=== PATIENT | female | born 1945 | race African-American/Black ===

== ENCOUNTER 2017-05-01 14:58 | Outpatient (CLI) | payer MEDICARE, BC ==
--- NOTE | 2017-05-01 18:21 | ULT ---
EXAM: BILATERAL LOWER EXTREMITY VENOUS ULTRASOUND WITH DOPPLER: 05/01/17 HISTORY: Bilateral lower extremity edema x2 weeks. COMPARISON: None. TECHNIQUE: Wallace scale, color flow, doppler imaging with spectral waveform analysis performed in the left and rig ht lower extremity venous system. FINDINGS: Bilaterally, there is compressibility, presence of flow and augmentation in the common femoral vein, femoral vein and popliteal vein. There is flow in bilateral greater saphenous veins, profunda veins a nd posterior tibial veins. IMPRESSION: No evidence of thrombus in the left or right lower extremity venous system. POS: [facility]
== END 2017-05-01 14:59 | disposition home or self-care (01) ==
LOC: ULT 14:58
PROVIDERS: ATTEND Internal Medicine
DX: R60.0 Localized edema (principal)
CPT/HCPCS: 93970

== ENCOUNTER 2017-07-16 20:10 | Emergency (ER) | payer MEDICARE, BC | END 2017-07-16 20:49 | disposition left against medical advice (07) | LOC: ERS 20:10 | DX: Z53.21 Procedure and treatment not carried out due to patient leaving prior to being seen by health care provider (principal) ==

== ENCOUNTER 2021-04-16 14:54 | Inpatient (IN) | payer MEDICARE ==
[~2021-04-16 14:54] MED LIST: Iopamidol-370 76% 500 ML 1 ML ONE
[2021-04-16] MEDS ORDERED: Morphine 4 MG/ML VIAL ONE (15:22)
[2021-04-16] MEDS ORDERED: Lorazepam 2 MG/ML VIAL ONE (15:26)
[2021-04-16] MEDS ORDERED: niCARdipine 20MG In NaCl 20 MG/200 ML BAG ONE (15:33)
[2021-04-16 15:35] LABS: #Eosinphils 0.1 thou/uL (0.0-0.7); #Monocytes 0.5 thou/uL (0.11-0.59); #Neutrophils 5.2 thou/uL (1.40-6.50); %Basophils 0.4 % (0.0-1.0); %Eosinophils 1.7 % (0.0-10.0); %Monocytes 6.6 % (0.0-10.0); %Neutrophils 76.2 % (42.0-75.0); Hemoglobin 12.2 g/dL (12.0-16.0); Mean Corpuscular HGB CONC 32.5 g/dL (32.0-36.0); Mean Corpuscular Volume 95.5 fL (78.0-98.0); Mean Platelet Volume 6.1 fL (7.4-10.4); Platelet Count 327 thou/uL (130-400); RBC Distribution Width 12.5 % (11.5-14.5); Red Blood Cell (RBC) Count 3.93 mill/uL (4.20-5.40); White Blood Cell (WBC) Count 6.8 thou/uL (4.8-10.8)
[2021-04-16 16:05] LABS: ALT (SGPT) 10 U/L (8-55); AST (SGOT) 14 U/L (5-34); Alkaline Phosphatase 51 U/L (40-110); Anion Gap 19 mmol/L (10-20); BUN (Urea Nitrogen) 12 mg/dL (9.8-20.1); Bilirubin, Total 0.4 mg/dL (0.2-1.2); Calc. Creatinine Clearance 0 mL/min (70-130); Calcium 9.9 mg/dL (7.8-10.44); Carbon Dioxide 20 mmol/L (23-31); Chloride 102 mmol/L (98-107); Globulin 3.3 g/dL (2.4-3.5); Glucose 119 mg/dL (83-110); Potassium 3.9 mmol/L (3.5-5.1); Protein, Total 7.3 g/dL (5.8-8.1); Sodium 137 mmol/L (136-145)
[2021-04-16 18:44] LABS: Acetaminophen Less than 6.0 mcg/mL (10.0-30.0); Alcohol Less than 10 mg/dL (Less than 10); Salicylate Less than 8.0 mg/dL (15.0-30.0)
[2021-04-16 19:18] LABS: Bilirubin Negative (Negative); Blood, Urine Negative (Negative); Clarity Clear (Clear); Glucose, Urine (Dipstick) Normal (Negative); Ketone, Urine Negative (Negative); Leukocyte Negative Leu/uL (Negative); Nitrite Negative (Negative); Protein, Urine (Dipstick) 10 mg/dL (Neg-Trace); Specific Gravity, Urine 1.043 (1.002-1.036); Urobilinogen Normal mg/dL (Less than 2); pH, Urine 6.5 (5.0-9.0)
[2021-04-16 19:27] LABS: Amphetamine Not Detected (NotDetected); Barbiturates Screen Not Detected (NotDetected); Benzodiazepine Screen Not Detected (NotDetected); Cocaine Metabolite Screen Not Detected (NotDetected); Methadone Not Detected (NotDetected); Methamphetamine Not Detected (NotDetected); Opiate Screen Detected (NotDetected); Oxycodone Screen Not Detected (NotDetected); Phencyclidine (PCP) Not Detected (NotDetected); THC/Cannabinoid Screen Not Detected (NotDetected); Tricyclic Screen Not Detected (NotDetected)
[2021-04-16 21:30] LABS: Lactic Acid 1.4 mmol/L (0.5-2.2)
[2021-04-16] MEDS ORDERED: Aspirin 300 MG Suppository PR SCH (22:20)
[2021-04-16] MEDS ORDERED: Ondansetron PF 4 MG/2 ML Vial IVP PRN (22:28)
[2021-04-16] MEDS ORDERED: Bisacodyl 10 MG SUPP PR PRN (22:28)
[2021-04-16] MEDS ORDERED: Sodium Chloride 0.9% 1,000 ML IV SCH (22:30)
[2021-04-16 23:10] VITALS: BMI 20.7
[2021-04-17] MEDS ORDERED: HumaLOG 300 UNITS/3 ML VIAL SC PRN ×2 (00:05)
[2021-04-17] MEDS ORDERED: Dextrose 5% in Water 1,000 ML IV PRN (00:05)
[2021-04-17] MEDS ORDERED: Dextrose 50% Abboject 50 ML SYRINGE SLOW IVP PRN (00:05)
[2021-04-17] MEDS ORDERED: hydrALAZINE 20 MG/ML VIAL SLOW IVP PRN (00:14)
[2021-04-17] MEDS ORDERED: Pantoprazole 40 MG VIAL IVP SCH (00:30)
[2021-04-17] MEDS: Sodium Chloride 0.9% 1,000 ML IV SCH ×2 (00:38→18:41)
[2021-04-17 06:10] LABS: #Lymphocytes 1.2 thou/uL (1.20-3.40); #Monocytes 0.7 thou/uL (0.11-0.59); #Neutrophils 7.2 thou/uL (1.40-6.50); %Basophils 0.1 % (0.0-1.0); %Eosinophils 0.4 % (0.0-10.0); %Lymphocytes 13.2 % (21.0-51.0); %Monocytes 7.4 % (0.0-10.0); %Neutrophils 78.9 % (42.0-75.0); Hemoglobin 10.9 g/dL (12.0-16.0); Mean Corpuscular HGB CONC 34.4 g/dL (32.0-36.0); Mean Corpuscular Hemoglobin 32.6 pg (27.0-31.0); Mean Corpuscular Volume 94.8 fL (78.0-98.0); Mean Platelet Volume 6.1 fL (7.4-10.4); Platelet Count 323 thou/uL (130-400); RBC Distribution Width 12.6 % (11.5-14.5); Red Blood Cell (RBC) Count 3.35 mill/uL (4.20-5.40); White Blood Cell (WBC) Count 9.2 thou/uL (4.8-10.8)
[2021-04-17 06:30] LABS: Hemoglobin A1c 6.1 % (4.0-6.0)
[2021-04-17 06:31] LABS: ALT (SGPT) 11 U/L (8-55); AST (SGOT) 19 U/L (5-34); Albumin 3.4 g/dL (3.4-4.8); Alkaline Phosphatase 40 U/L (40-110); Anion Gap 14 mmol/L (10-20); BUN (Urea Nitrogen) 9 mg/dL (9.8-20.1); Bilirubin, Total 0.4 mg/dL (0.2-1.2); Calc. Creatinine Clearance 50 mL/min (70-130); Calcium 8.9 mg/dL (7.8-10.44); Carbon Dioxide 23 mmol/L (23-31); Cardiac Risk 1.8 (Less than 4.5); Chloride 102 mmol/L (98-107); Cholesterol 142 mg/dl (< 200 Desired); Globulin 2.7 g/dL (2.4-3.5); Glucose 112 mg/dL (83-110); HDL Cholesterol 80 mg/dL (>60 Neg Risk); LDL Cholesterol, Calculated 53 mg/dL; Potassium 4.1 mmol/L (3.5-5.1); Protein, Total 6.1 g/dL (5.8-8.1); Sodium 135 mmol/L (136-145); Triglycerides 44 mg/dL (Less than 150)
[2021-04-17] MEDS: Pantoprazole 40 MG VIAL IVP SCH ×2 (09:18→21:00)
[2021-04-17 14:28] LABS: SARS-CoV-2 PCR by NAA Not Detected (NotDetected)
[2021-04-17] MEDS: Acetaminophen 650 MG Suppository PR PRN ×2 (15:04→21:00)
[2021-04-18] MEDS ORDERED: Aspirin 300 MG Suppository PR SCH (09:00)
[2021-04-18] MEDS: Pantoprazole 40 MG VIAL IVP SCH ×3 (09:30→20:55)
[2021-04-18] MEDS: Sodium Chloride 0.9% 1,000 ML IV SCH (16:15)
[2021-04-19] MEDS ORDERED: Aspirin 325 MG TAB PO SCH (09:00)
[2021-04-19] MEDS: Sodium Chloride 0.9% 1,000 ML IV SCH (10:42)
[2021-04-19] MEDS: Pantoprazole 40 MG VIAL IVP SCH (10:46)
[2021-04-19] MEDS ORDERED: Meloxicam 7.5 MG TAB PO SCH (21:00)
[2021-04-19] MEDS ORDERED: Simvastatin 20 MG TAB PO SCH (21:00)
[2021-04-19] MEDS: Atorvastatin Calcium 10 MG TAB PO SCH (21:02)
[2021-04-19] MEDS: metFORMIN 500 MG TAB PO SCH (21:02)
[2021-04-20] MEDS: Sodium Chloride 0.9% 1,000 ML IV SCH (05:30)
[2021-04-20] MEDS: Aggrenox 200-25mg CAP PO SCH (09:00)
[2021-04-20] MEDS: metFORMIN 500 MG TAB PO SCH ×2 (09:00→21:10)
[2021-04-20] MEDS: Citalopram 20 MG TAB PO SCH (09:00)
[2021-04-20] MEDS: Lisinopril 5 MG TAB PO SCH (09:00)
[2021-04-20] MEDS: Amlodipine 5 MG TAB PO SCH (09:11)
[2021-04-20] MEDS: Atorvastatin Calcium 10 MG TAB PO SCH (21:10)
[2021-04-21] MEDS: Sodium Chloride 0.9% 1,000 ML IV SCH ×2 (05:23→23:55)
[2021-04-21] MEDS: Aggrenox 200-25mg CAP PO SCH (09:53)
[2021-04-21] MEDS: Amlodipine 5 MG TAB PO SCH (09:53)
[2021-04-21] MEDS: Lisinopril 5 MG TAB PO SCH (09:54)
[2021-04-21] MEDS: Citalopram 20 MG TAB PO SCH (09:54)
[2021-04-21] MEDS: metFORMIN 500 MG TAB PO SCH ×2 (09:54→20:55)
[2021-04-21] MEDS: Atorvastatin Calcium 10 MG TAB PO SCH (20:56)
[2021-04-22] MEDS: Citalopram 20 MG TAB PO SCH (08:13)
[2021-04-22] MEDS: Aggrenox 200-25mg CAP PO SCH (08:13)
[2021-04-22] MEDS: metFORMIN 500 MG TAB PO SCH ×2 (08:13→21:40)
[2021-04-22] MEDS: Lisinopril 5 MG TAB PO SCH (08:14)
[2021-04-22] MEDS: Amlodipine 5 MG TAB PO SCH (08:14)
[2021-04-22] MEDS ORDERED: Amlodipine 5 MG TAB PO SCH ×2 (08:57→14:30)
[2021-04-22] MEDS ORDERED: Lisinopril 5 MG TAB PO SCH ×2 (09:00→14:30)
[2021-04-22] MEDS: Sodium Chloride 0.9% 1,000 ML IV SCH (18:53)
[2021-04-22] MEDS: Atorvastatin Calcium 10 MG TAB PO SCH (21:40)
[2021-04-22] MEDS: Lisinopril 10 MG TAB PO SCH (21:40)
[2021-04-23] MEDS: Aggrenox 200-25mg CAP PO SCH (09:53)
[2021-04-23] MEDS: Amlodipine 10 MG TAB PO SCH (09:54)
[2021-04-23] MEDS: metFORMIN 500 MG TAB PO SCH ×2 (09:54→22:20)
[2021-04-23] MEDS: Lisinopril 10 MG TAB PO SCH ×2 (09:54→22:20)
[2021-04-23] MEDS: Citalopram 20 MG TAB PO SCH (09:54)
[2021-04-23] MEDS: Sodium Chloride 0.9% 1,000 ML IV SCH (17:22)
[2021-04-23] MEDS: Atorvastatin Calcium 10 MG TAB PO SCH (22:20)
[2021-04-24] MEDS: Lisinopril 10 MG TAB PO SCH ×2 (09:04→20:53)
[2021-04-24] MEDS: Citalopram 20 MG TAB PO SCH (09:04)
[2021-04-24] MEDS: metFORMIN 500 MG TAB PO SCH ×2 (09:04→20:52)
[2021-04-24] MEDS: Amlodipine 10 MG TAB PO SCH (09:05)
[2021-04-24] MEDS: Aggrenox 200-25mg CAP PO SCH (10:23)
[2021-04-24] MEDS: Atorvastatin Calcium 10 MG TAB PO SCH (20:53)
[2021-04-24] MEDS: Senokot S 8.6-50 MG TAB PO SCH (20:53)
[2021-04-24 21:16] LABS: SARS-CoV-2 PCR by NAA Not Detected (NotDetected)
[2021-04-25] MEDS: Senokot S 8.6-50 MG TAB PO SCH (08:20)
[2021-04-25] MEDS: metFORMIN 500 MG TAB PO SCH (08:20)
[2021-04-25] MEDS: Amlodipine 10 MG TAB PO SCH (08:21)
[2021-04-25] MEDS: Lisinopril 10 MG TAB PO SCH (08:21)
[2021-04-25] MEDS: Aggrenox 200-25mg CAP PO SCH (08:21)
[2021-04-25] MEDS: Citalopram 20 MG TAB PO SCH (08:21)
[2021-04-25] MEDS ORDERED: Polyethylene Glycol 3350 17 GM Packet PER TUBE SCH (09:00)
[2021-04-25 12:21] VITALS: TEMP 98.2
[2021-04-25 16:10] VITALS: BP 149/71
== END 2021-04-25 18:30 | disposition home health service (06) | DRG 56 ==
LOC: ERS 14:54 → NEURO 20:07
PROVIDERS: ADMIT Hospitalist; ATTEND Internal Medicine
DX: I69.398 Other sequelae of cerebral infarction (principal); G93.41 Metabolic encephalopathy; I69.351 Hemiplegia and hemiparesis following cerebral infarction affecting right dominant side; Z20.822 Contact with and (suspected) exposure to COVID-19; Z23 Encounter for immunization; I10 Essential (primary) hypertension; E78.5 Hyperlipidemia, unspecified; E10.65 Type 1 diabetes mellitus with hyperglycemia; Z90.710 Acquired absence of both cervix and uterus; Z90.11 Acquired absence of right breast and nipple; Z85.3 Personal history of malignant neoplasm of breast; Z79.899 Other long term (current) drug therapy; Z79.01 Long term (current) use of anticoagulants; Z79.84 Long term (current) use of oral hypoglycemic drugs; I69.320 Aphasia following cerebral infarction; I69.322 Dysarthria following cerebral infarction
CPT/HCPCS: 36415; 36416; 51701; 70450; 70496; 70498; 70551; 71045; 74230; 80053; 80061; 80306; 80307; 81003; 83036; 83605; 84443; 84484; 85025; 87086; 90471; 90732; 93005; 93306; 95712; 95819; 95957; 96365; 96375; C9113; G0009; J1815; J2060; J2270; J7050; Q9967; U0003; U0005

== ENCOUNTER 2021-10-22 16:34 | Inpatient (IN) | payer OTHER, BC, MEDICARE ==
[2021-10-22] MEDS ORDERED: levETIRAcetam 500 MG/5 ML VIAL ONE (16:36)
[2021-10-22] MEDS ORDERED: Lorazepam 2 MG/ML VIAL ONE (16:38)
[2021-10-22 16:44] LABS: #Monocytes 0.3 thou/uL (0.11-0.59); #Neutrophils 7.4 thou/uL (1.40-6.50); %Basophils 0.5 % (0.0-1.0); %Eosinophils 0.6 % (0.0-10.0); %Lymphocytes 11.4 % (21.0-51.0); %Monocytes 2.8 % (0.0-10.0); %Neutrophils 84.7 % (42.0-75.0); Hemoglobin 11.9 g/dL (12.0-16.0); Mean Corpuscular HGB CONC 31.3 g/dL (32.0-36.0); Mean Corpuscular Hemoglobin 29.7 pg (27.0-31.0); Mean Corpuscular Volume 94.9 fL (78.0-98.0); Platelet Count 372 thou/uL (130-400); Red Blood Cell (RBC) Count 4.02 mill/uL (4.20-5.40); White Blood Cell (WBC) Count 8.8 thou/uL (4.8-10.8)
[2021-10-22 16:58] LABS: INR-International Normal Ratio 0.9; PTT 24.7 sec (22.9-36.1); Prothrombin Time 12.6 sec (12.0-14.7)
[2021-10-22 17:00] LABS: ALT (SGPT) 8 U/L (8-55); AST (SGOT) 15 U/L (5-34); Albumin 4.2 g/dL (3.4-4.8); Alkaline Phosphatase 52 U/L (40-110); Anion Gap 23 mmol/L (10-20); BUN (Urea Nitrogen) 16 mg/dL (9.8-20.1); Bilirubin, Total 0.3 mg/dL (0.2-1.2); CK (CPK) 125 U/L (29-168); Calc. Creatinine Clearance 0 mL/min (70-130); Calcium 9.3 mg/dL (7.8-10.44); Carbon Dioxide 17 mmol/L (23-31); Chloride 103 mmol/L (98-107); Glucose 229 mg/dL (83-110); Protein, Total 7.2 g/dL (5.8-8.1); Sodium 139 mmol/L (136-145)
[2021-10-22 17:35] LABS: Bacteria/HPF None Seen HPF (None Seen); Bilirubin Negative (Negative); Blood, Urine Negative (Negative); Clarity Clear (Clear); Glucose, Urine (Dipstick) 50 mg/dL (Negative); Ketone, Urine Trace mg/dL (Negative); Leukocyte Negative Leu/uL (Negative); Nitrite Negative (Negative); Protein, Urine (Dipstick) 30 mg/dL (Neg-Trace); RBC/HPF 0-3 HPF (0-3); Squamous Epithelial None Seen HPF (0-3); Urobilinogen Normal mg/dL (Less than 2); WBC/HPF 0-3 HPF (0-3); pH, Urine 5.5 (5.0-9.0)
[2021-10-22 17:37] LABS: Specific Gravity, Urine 1.052 (1.002-1.036)
[2021-10-22] MEDS ORDERED: Lorazepam 2 MG/ML VIAL SLOW IVP PRN (19:22)
[2021-10-22] MEDS ORDERED: Ondansetron ODT 4 MG TAB PO PRN (19:30)
[2021-10-22 19:55] LABS: Magnesium 1.5 mg/dL (1.6-2.6)
[2021-10-22] MEDS ORDERED: Dextrose 50% Abboject 50 ML SYRINGE SLOW IVP PRN (21:01)
[2021-10-22] MEDS ORDERED: Dextrose 5% in Water 1,000 ML IV PRN (21:01)
[2021-10-22] MEDS: levETIRAcetam 500 MG TAB PO SCH (22:15)
[2021-10-22] MEDS: Heparin 5,000 UNITS/ML VIAL SC SCH (22:22)
[2021-10-23 05:46] LABS: #Basophils 0.1 thou/uL (0.0-0.2); #Eosinphils 0.1 thou/uL (0.0-0.7); #Lymphocytes 1.2 thou/uL (1.20-3.40); #Monocytes 0.6 thou/uL (0.11-0.59); #Neutrophils 6.1 thou/uL (1.40-6.50); %Basophils 0.7 % (0.0-1.0); %Eosinophils 0.7 % (0.0-10.0); %Lymphocytes 14.8 % (21.0-51.0); %Neutrophils 75.8 % (42.0-75.0); Hemoglobin 11.2 g/dL (12.0-16.0); Mean Corpuscular HGB CONC 32.7 g/dL (32.0-36.0); Mean Corpuscular Hemoglobin 31.1 pg (27.0-31.0); Mean Corpuscular Volume 95.1 fL (78.0-98.0); Mean Platelet Volume 6.2 fL (7.4-10.4); Platelet Count 289 thou/uL (130-400); Red Blood Cell (RBC) Count 3.61 mill/uL (4.20-5.40)
[2021-10-23 05:54] LABS: ALT (SGPT) 8 U/L (8-55); AST (SGOT) 18 U/L (5-34); Albumin 3.6 g/dL (3.4-4.8); Alkaline Phosphatase 41 U/L (40-110); Anion Gap 12 mmol/L (10-20); BUN (Urea Nitrogen) 11 mg/dL (9.8-20.1); Bilirubin, Total 0.5 mg/dL (0.2-1.2); Calc. Creatinine Clearance 50 mL/min (70-130); Calcium 8.9 mg/dL (7.8-10.44); Carbon Dioxide 23 mmol/L (23-31); Chloride 107 mmol/L (98-107); Globulin 2.7 g/dL (2.4-3.5); Glucose 108 mg/dL (83-110); Potassium 3.4 mmol/L (3.5-5.1); Protein, Total 6.3 g/dL (5.8-8.1); Sodium 139 mmol/L (136-145)
[2021-10-23] MEDS ORDERED: Lisinopril 5 MG TAB PO SCH (09:00)
[2021-10-23] MEDS ORDERED: levETIRAcetam in NS 1,000 MG in Premix Bag 1 BAG IVPB SCH (10:16)
[2021-10-23] MEDS ORDERED: Acetaminophen 650 MG Suppository PR PRN (10:20)
[2021-10-23] MEDS ORDERED: Fentanyl 100 MCG/2 ML VIAL SLOW IVP PRN (10:20)
[2021-10-23] MEDS ORDERED: Aspirin 300 MG Suppository PR SCH (10:30)
[2021-10-23] MEDS ORDERED: Potassium Chloride 10 MEQ in Premix Bag 1 BAG IVPB SCH (10:30)
[2021-10-23] MEDS: Heparin 5,000 UNITS/ML VIAL SC SCH ×3 (10:30→21:20)
[2021-10-23 10:41] LABS: Magnesium 1.6 mg/dL (1.6-2.6)
[2021-10-23] MEDS ORDERED: levETIRAcetam 500 MG/5 ML VIAL SLOW IVP SCH (10:45)
[2021-10-23] MEDS ORDERED: Electrolyte Replacement Protocol 1 EACH FS PRN (11:00)
[2021-10-23] MEDS ORDERED: Magnesium 2 GM/50 ML(in water) 2 GM in Premix Bag 1 BAG IVPB SCH (11:00)
[2021-10-23] MEDS: Enalaprilat Dihydrate 1.25 MG/ML VIAL SLOW IVP SCH ×2 (12:55→18:30)
[2021-10-23] MEDS: levETIRAcetam 500 MG TAB PO SCH (13:28)
[2021-10-23] MEDS: NS 0.9% w/ 20 MEQ KCL 1,000 ML/1,000 ML BAG IV SCH (15:16)
[2021-10-23] MEDS ORDERED: Atorvastatin Calcium 10 MG TAB PO SCH (21:00)
[2021-10-23] MEDS: Atorvastatin Calcium 10 MG TAB PO SCH (21:13)
[2021-10-23] MEDS: levETIRAcetam 500 MG/5 ML VIAL SLOW IVP SCH (21:13)
[2021-10-23] MEDS: Famotidine/PF 20 mg/2ml Vial SLOW IVP SCH (21:13)
[2021-10-24] MEDS: Enalaprilat Dihydrate 1.25 MG/ML VIAL SLOW IVP SCH ×4 (01:46→18:11)
[2021-10-24] MEDS: NS 0.9% w/ 20 MEQ KCL 1,000 ML/1,000 ML BAG IV SCH ×2 (01:50→11:53)
[2021-10-24] MEDS ORDERED: Fentanyl 100 MCG/2 ML VIAL ONE (08:30)
[2021-10-24 08:40] LABS: SARS-CoV-2 NAA Rapid Test Not Detected (NotDetected)
[2021-10-24] MEDS ORDERED: PROPOFOL 200 MG/20 ML VIAL ONE (09:15)
[2021-10-24] MEDS: levETIRAcetam 500 MG/5 ML VIAL SLOW IVP SCH ×2 (11:07→22:30)
[2021-10-24] MEDS: Aspirin 300 MG Suppository PR SCH (11:08)
[2021-10-24] MEDS: Heparin 5,000 UNITS/ML VIAL SC SCH ×3 (11:08→22:25)
[2021-10-24] MEDS ORDERED: Magnevist 469MG/ML 20 ML VIAL ONE (11:20)
[2021-10-24 14:23] VITALS: BMI 20.9
[2021-10-24] MEDS: Famotidine/PF 20 mg/2ml Vial SLOW IVP SCH (22:25)
[2021-10-24] MEDS: Atorvastatin Calcium 10 MG TAB PO SCH (23:09)
[2021-10-25] MEDS: Enalaprilat Dihydrate 1.25 MG/ML VIAL SLOW IVP SCH ×5 (00:11→23:36)
[2021-10-25] MEDS: NS 0.9% w/ 20 MEQ KCL 1,000 ML/1,000 ML BAG IV SCH ×2 (04:14→16:04)
[2021-10-25 05:23] LABS: Anion Gap 15 mmol/L (10-20); BUN (Urea Nitrogen) 11 mg/dL (9.8-20.1); Calc. Creatinine Clearance 62 mL/min (70-130); Calcium 8.5 mg/dL (7.8-10.44); Carbon Dioxide 16 mmol/L (23-31); Chloride 109 mmol/L (98-107); Glucose 67 mg/dL (83-110); Magnesium 1.6 mg/dL (1.6-2.6); Phosphorus 3.1 mg/dL (2.3-4.7); Sodium 136 mmol/L (136-145)
[2021-10-25] MEDS ORDERED: Magnesium 2 GM/50 ML(in water) 2 GM in Premix Bag 1 BAG IVPB SCH (06:00)
[2021-10-25] MEDS: levETIRAcetam 500 MG/5 ML VIAL SLOW IVP SCH ×2 (08:19→20:57)
[2021-10-25] MEDS: Aspirin 300 MG Suppository PR SCH (08:19)
[2021-10-25] MEDS: Heparin 5,000 UNITS/ML VIAL SC SCH ×3 (08:20→20:58)
[2021-10-25] MEDS: Famotidine/PF 20 mg/2ml Vial SLOW IVP SCH ×2 (10:49→20:58)
[2021-10-25] MEDS: Atorvastatin Calcium 10 MG TAB PO SCH (20:58)
[2021-10-26] MEDS: Acetaminophen 325 MG TAB PO PRN (03:42)
[2021-10-26] MEDS: NS 0.9% w/ 20 MEQ KCL 1,000 ML/1,000 ML BAG IV SCH ×2 (05:45→16:51)
[2021-10-26] MEDS: Enalaprilat Dihydrate 1.25 MG/ML VIAL SLOW IVP SCH ×3 (06:27→16:19)
[2021-10-26] MEDS: Insulin Regular 300 UNITS/3 ML VIAL SC PRN ×2 (06:27→12:57)
[2021-10-26 07:17] LABS: #Eosinphils 0.1 thou/uL (0.0-0.7); #Lymphocytes 0.8 thou/uL (1.20-3.40); #Monocytes 0.4 thou/uL (0.11-0.59); #Neutrophils 8.5 thou/uL (1.40-6.50); %Basophils 0.4 % (0.0-1.0); %Eosinophils 0.8 % (0.0-10.0); %Lymphocytes 8.6 % (21.0-51.0); %Monocytes 4.3 % (0.0-10.0); %Neutrophils 85.9 % (42.0-75.0); Mean Corpuscular HGB CONC 31.9 g/dL (32.0-36.0); Mean Corpuscular Hemoglobin 29.9 pg (27.0-31.0); Mean Corpuscular Volume 93.6 fL (78.0-98.0); Platelet Count 312 thou/uL (130-400); RBC Distribution Width 12.9 % (11.5-14.5); Red Blood Cell (RBC) Count 4.02 mill/uL (4.20-5.40); White Blood Cell (WBC) Count 9.8 thou/uL (4.8-10.8)
[2021-10-26 07:54] LABS: Magnesium 1.7 mg/dL (1.6-2.6)
[2021-10-26 07:56] LABS: ALT (SGPT) 7 U/L (8-55); AST (SGOT) 14 U/L (5-34); Albumin 3.5 g/dL (3.4-4.8); Alkaline Phosphatase 47 U/L (40-110); Anion Gap 15 mmol/L (10-20); BUN (Urea Nitrogen) 9 mg/dL (9.8-20.1); Bilirubin, Total 0.6 mg/dL (0.2-1.2); Calc. Creatinine Clearance 53 mL/min (70-130); Calcium 8.9 mg/dL (7.8-10.44); Carbon Dioxide 20 mmol/L (23-31); Chloride 106 mmol/L (98-107); Glucose 150 mg/dL (83-110); Lipase 36 U/L (8-78); Potassium 3.8 mmol/L (3.5-5.1); Protein, Total 6.5 g/dL (5.8-8.1); Sodium 137 mmol/L (136-145)
[2021-10-26] MEDS ORDERED: Magnesium Sulfate 2 GM in Sodium Chloride 0.9% 100 ML IVPB SCH (08:00)
[2021-10-26] MEDS: Aspirin 300 MG Suppository PR SCH (09:08)
[2021-10-26] MEDS: levETIRAcetam 500 MG/5 ML VIAL SLOW IVP SCH (09:09)
[2021-10-26] MEDS: Famotidine/PF 20 mg/2ml Vial SLOW IVP SCH (09:09)
[2021-10-26] MEDS: Heparin 5,000 UNITS/ML VIAL SC SCH ×3 (09:09→21:09)
[2021-10-26] MEDS ORDERED: Melatonin 3 MG TAB PO PRN (20:54)
[2021-10-26] MEDS: Famotidine 20 MG TAB PO SCH (21:08)
[2021-10-26] MEDS: levETIRAcetam 500 mg/5 ml Oral Solution PO SCH (21:08)
[2021-10-26] MEDS: Atorvastatin Calcium 10 MG TAB PO SCH (21:20)
[2021-10-27] MEDS: Enalaprilat Dihydrate 1.25 MG/ML VIAL SLOW IVP SCH ×5 (00:19→23:24)
[2021-10-27] MEDS: Insulin Regular 300 UNITS/3 ML VIAL SC PRN ×3 (05:58→17:14)
[2021-10-27] MEDS: NS 0.9% w/ 20 MEQ KCL 1,000 ML/1,000 ML BAG IV SCH ×2 (06:03→23:29)
[2021-10-27] MEDS: Heparin 5,000 UNITS/ML VIAL SC SCH ×3 (08:18→20:46)
[2021-10-27] MEDS: Famotidine 20 MG TAB PO SCH ×2 (08:18→20:45)
[2021-10-27] MEDS: levETIRAcetam 500 mg/5 ml Oral Solution PO SCH ×2 (08:18→20:45)
[2021-10-27] MEDS: Aggrenox 200-25mg CAP PO SCH (08:18)
[2021-10-27] MEDS: Atorvastatin Calcium 10 MG TAB PO SCH (20:45)
[2021-10-28] MEDS: NS 0.9% w/ 20 MEQ KCL 1,000 ML/1,000 ML BAG IV SCH ×2 (05:22→17:31)
[2021-10-28] MEDS: Enalaprilat Dihydrate 1.25 MG/ML VIAL SLOW IVP SCH ×3 (05:22→17:05)
[2021-10-28] MEDS: Heparin 5,000 UNITS/ML VIAL SC SCH ×3 (08:25→22:22)
[2021-10-28] MEDS: levETIRAcetam 500 mg/5 ml Oral Solution PO SCH ×2 (08:27→22:18)
[2021-10-28] MEDS: Aggrenox 200-25mg CAP PO SCH (08:27)
[2021-10-28] MEDS: Famotidine 20 MG TAB PO SCH ×2 (08:27→22:20)
[2021-10-28] MEDS: Insulin Regular 300 UNITS/3 ML VIAL SC PRN (17:05)
[2021-10-28] MEDS: Atorvastatin Calcium 10 MG TAB PO SCH (22:21)
[2021-10-29] MEDS: Enalaprilat Dihydrate 1.25 MG/ML VIAL SLOW IVP SCH ×2 (02:01→07:51)
[2021-10-29] MEDS: Heparin 5,000 UNITS/ML VIAL SC SCH ×3 (08:54→20:28)
[2021-10-29] MEDS: NS 0.9% w/ 20 MEQ KCL 1,000 ML/1,000 ML BAG IV SCH (08:54)
[2021-10-29] MEDS: levETIRAcetam 500 mg/5 ml Oral Solution PO SCH ×2 (08:55→20:28)
[2021-10-29] MEDS: Aggrenox 200-25mg CAP PO SCH (08:55)
[2021-10-29] MEDS: Acetaminophen 325 MG TAB PO PRN (08:55)
[2021-10-29] MEDS: Famotidine 20 MG TAB PO SCH (08:56)
[2021-10-29] MEDS ORDERED: Lisinopril 5 MG TAB PO SCH (09:30)
[2021-10-29 09:55] LABS: #Eosinphils 0.1 thou/uL (0.0-0.7); #Monocytes 0.2 thou/uL (0.11-0.59); #Neutrophils 3.2 thou/uL (1.40-6.50); %Basophils 0.2 % (0.0-1.0); %Eosinophils 2.8 % (0.0-10.0); %Lymphocytes 21.5 % (21.0-51.0); %Monocytes 4.9 % (0.0-10.0); %Neutrophils 70.6 % (42.0-75.0); Hemoglobin 11.8 g/dL (12.0-16.0); Mean Corpuscular HGB CONC 31.9 g/dL (32.0-36.0); Mean Corpuscular Hemoglobin 30.3 pg (27.0-31.0); Mean Corpuscular Volume 95.1 fL (78.0-98.0); Mean Platelet Volume 6.3 fL (7.4-10.4); Platelet Count 372 thou/uL (130-400); RBC Distribution Width 13.1 % (11.5-14.5); Red Blood Cell (RBC) Count 3.89 mill/uL (4.20-5.40); White Blood Cell (WBC) Count 4.6 thou/uL (4.8-10.8)
[2021-10-29 10:15] LABS: ALT (SGPT) 8 U/L (8-55); AST (SGOT) 11 U/L (5-34); Albumin 3.4 g/dL (3.4-4.8); Alkaline Phosphatase 46 U/L (40-110); Anion Gap 10 mmol/L (10-20); BUN (Urea Nitrogen) 10 mg/dL (9.8-20.1); Bilirubin, Direct 0.2 mg/dL (0.1-0.3); Bilirubin, Total 0.5 mg/dL (0.2-1.2); Calc. Creatinine Clearance 47 mL/min (70-130); Calcium 9.5 mg/dL (7.8-10.44); Carbon Dioxide 27 mmol/L (23-31); Chloride 108 mmol/L (98-107); Glucose 183 mg/dL (83-110); Lipase 41 U/L (8-78); Magnesium 1.9 mg/dL (1.6-2.6); Phosphorus 3.2 mg/dL (2.3-4.7); Potassium 4.2 mmol/L (3.5-5.1); Protein, Total 6.6 g/dL (5.8-8.1); Sodium 141 mmol/L (136-145)
[2021-10-29] MEDS: Insulin Regular 300 UNITS/3 ML VIAL SC PRN ×2 (12:21→18:34)
[2021-10-29] MEDS ORDERED: Magnesium 2 GM/50 ML(in water) 2 GM in Premix Bag 1 BAG IVPB SCH (14:00)
[2021-10-29] MEDS ORDERED: Iopamidol-370 76% 500 ML 1 ML ONE (16:25)
[2021-10-29] MEDS ORDERED: Sodium Chloride 0.9% 1,000 ML IV SCH (20:00)
[2021-10-29] MEDS: Docusate 100 MG CAP PO SCH (20:28)
[2021-10-29] MEDS: Atorvastatin Calcium 10 MG TAB PO SCH (20:28)
[2021-10-30 05:51] LABS: Anion Gap 11 mmol/L (10-20); BUN (Urea Nitrogen) 12 mg/dL (9.8-20.1); Calc. Creatinine Clearance 51 mL/min (70-130); Carbon Dioxide 27 mmol/L (23-31); Chloride 107 mmol/L (98-107); Glucose 144 mg/dL (83-110); Potassium 3.9 mmol/L (3.5-5.1); Sodium 141 mmol/L (136-145)
[2021-10-30] MEDS ORDERED: metFORMIN 500 MG TAB PO SCH (08:00)
[2021-10-30] MEDS: Aggrenox 200-25mg CAP PO SCH (08:31)
[2021-10-30] MEDS: Docusate 100 MG CAP PO SCH (08:31)
[2021-10-30] MEDS: Heparin 5,000 UNITS/ML VIAL SC SCH (08:34)
[2021-10-30] MEDS: levETIRAcetam 500 mg/5 ml Oral Solution PO SCH (08:34)
[2021-10-30] MEDS ORDERED: Polyethylene Glycol 3350 17 GM Packet PO SCH (09:00)
[2021-10-30] MEDS ORDERED: Lisinopril 5 MG TAB PO SCH (09:00)
[2021-10-30] MEDS ORDERED: Amlodipine 5 MG TAB PO SCH (09:15)
[2021-10-30] MEDS: Insulin Regular 300 UNITS/3 ML VIAL SC PRN (11:19)
[2021-10-30 12:23] VITALS: TEMP 97.5
[2021-10-30 12:52] VITALS: BP 163/83
[2021-10-31] MEDS ORDERED: Amlodipine 5 MG TAB PO SCH (09:00)
== END 2021-10-30 14:24 | DRG 57 ==
LOC: ERS 16:34 → NEURO 19:55 → OBSVTOIN 10-23 10:14
PROVIDERS: ADMIT Family Medicine; ATTEND Family Medicine
DX: I69.398 Other sequelae of cerebral infarction (principal); I69.351 Hemiplegia and hemiparesis following cerebral infarction affecting right dominant side; I47.2 Ventricular tachycardia; I47.1 Supraventricular tachycardia; N13.39 Other hydronephrosis; G93.49 Other encephalopathy; Z20.822 Contact with and (suspected) exposure to COVID-19; D25.9 Leiomyoma of uterus, unspecified; E78.5 Hyperlipidemia, unspecified; G40.909 Epilepsy, unspecified, not intractable, without status epilepticus; E11.65 Type 2 diabetes mellitus with hyperglycemia; N18.9 Chronic kidney disease, unspecified; E11.22 Type 2 diabetes mellitus with diabetic chronic kidney disease; I12.9 Hypertensive chronic kidney disease with stage 1 through stage 4 chronic kidney disease, or unspecified chronic kidney disease; D63.1 Anemia in chronic kidney disease; I51.89 Other ill-defined heart diseases; E87.6 Hypokalemia; E83.42 Hypomagnesemia; G47.00 Insomnia, unspecified; R13.12 Dysphagia, oropharyngeal phase; I69.391 Dysphagia following cerebral infarction; Z79.899 Other long term (current) drug therapy; Z79.84 Long term (current) use of oral hypoglycemic drugs; Z79.82 Long term (current) use of aspirin; Z90.710 Acquired absence of both cervix and uterus; Z82.49 Family history of ischemic heart disease and other diseases of the circulatory system; Z83.3 Family history of diabetes mellitus; I69.320 Aphasia following cerebral infarction; I69.392 Facial weakness following cerebral infarction; I69.322 Dysarthria following cerebral infarction
CPT/HCPCS: 36415; 36416; 51701; 70450; 70496; 70498; 70553; 71045; 74177; 76700; 80048; 80053; 80076; 81003; 81015; 82550; 83690; 83735; 84100; 84443; 84484; 85025; 85610; 85730; 93005; 93306; 95816; 95819; 95957; 96365; 96366; 96375; A9579; G0378; J1644; J1815; J1953; J2060; J2704; J3010; J3475; J3480; J3490; J7050; Q9967; S0028; U0002; U0003; U0005